=== PATIENT | female | born 1990 | race Caucasian/White ===

== ENCOUNTER 2017-06-02 18:12 | Emergency (ER) | payer OTHER, MEDICAID ==
[~2017-06-02] VITALS: Ht 157.5 cm; Wt 72.7 kg
[2017-06-02] MEDS ORDERED: CYCLOBENZ5 MG PO (19:28)
[2017-06-02 19:47] VITALS: BP 103/51
== END 2017-06-02 19:47 | disposition home or self-care (01) ==
LOC: ED 18:12
DX: S00.33XA Contusion of nose, initial encounter (principal); S13.4XXA Sprain of ligaments of cervical spine, initial encounter; V43.52XA Car driver injured in collision with other type car in traffic accident, initial encounter; Y92.410 Unspecified street and highway as the place of occurrence of the external cause
CPT/HCPCS: J1885; J2360

== ENCOUNTER 2019-01-20 16:48 | Emergency (ER) | payer BC ==
[~2019-01-20] VITALS: Ht 157.5 cm; Wt 90.0 kg
[~2019-01-20 16:48] MED LIST: CYCLOBENZ5 MG PO
[2019-01-20] MEDS ORDERED: PROAIR HFA0.09 MG/AC IH (16:56)
[2019-01-20] MEDS ORDERED: FLUTICASON0.05 MG/AC NS (16:56)
[2019-01-20] MEDS ORDERED: SERTRALINE50 MG PO (16:56)
[2019-01-20 17:27] LABS: EOS # 0.1 (0.04-0.40); EOS % 0.8 % (1.0-5.0); HEMATOCRIT 37.8 % (37.0-47.0); HEMOGLOBIN 12.1 g/dL (12.5-16.0); LYMPH# 1.9 (1.50-4.00); MEAN CELL VOLUME 83 fl (78-100); MEAN CORPUSCULAR HEMOGLOBIN 26 pg (27-31); MEAN CORPUSCULAR HGB CONC 32 g/dL (33-37); MEAN PLATELET VOLUME 9.4 fl (7.4-10.4); MONO # 0.5 (0.20-0.80); NEU # 6.1 (1.40-6.50); PLATELET COUNT 288 K/mm3 (130-400); RED BLOOD COUNT 4.58 M/mm3 (4.10-5.30); RED CELL DISTRIBUTION WIDTH 13.6 % (11.5-14.5); WHITE BLOOD COUNT 8.5 K/mm3 (4.8-10.8)
[2019-01-20 17:37] LABS: ALBUMIN 4.3 g/dL (3.5-5.0); POTASSIUM 3.6 mmol/L (3.5-5.1)
[2019-01-20 17:39] LABS: CALCIUM 9.3 mg/dL (8.3-10.5)
[2019-01-20 17:40] LABS: TOTAL PROTEIN 7.5 g/dL (6.4-8.3)
[2019-01-20 17:42] LABS: TOTAL BILIRUBIN 0.3 mg/dL (0.2-1.2)
[2019-01-20 18:28] LABS: URINE APPEARANCE HAZY; URINE BILIRUBIN NEGATIVE (NEGATIVE); URINE COLOR YELLOW; URINE GLUCOSE NEGATIVE (NEGATIVE); URINE KETONE NEGATIVE (NEGATIVE); URINE PROTEIN(semi-quant) TRACE mg/dL (NEGATIVE); URINE UROBILINOGEN NORMAL (NORMAL)
[2019-01-20 18:29] LABS: URINE BLOOD 250 ery/uL (NEGATIVE); URINE LEUKOCYTE ESTERASE 1+ (NEGATIVE); URINE NITRATE NEGATIVE (NEGATIVE)
[2019-01-20 18:30] LABS: CLUE CELLS NOT OBSERVED (Not Observd)
[2019-01-20] MEDS ORDERED: MACROBID 100 M100 MG PO (18:49)
[2019-01-20] MEDS ORDERED: ZOFRAN4 M2 PO (18:49)
[2019-01-20 19:12] VITALS: BP 116/41
== END 2019-01-20 19:14 | disposition home or self-care (01) ==
LOC: ED 16:48
PROVIDERS: Nurse Practitioner Primary Care
DX: N30.90 Cystitis, unspecified without hematuria (principal); N93.8 Other specified abnormal uterine and vaginal bleeding; Z90.49 Acquired absence of other specified parts of digestive tract; Z90.89 Acquired absence of other organs; Z79.51 Long term (current) use of inhaled steroids
CPT/HCPCS: J0696; Q0111

== ENCOUNTER → 2019-07-27 | Outpatient (CLI) | payer BC ==
[~2019-07-27] MED LIST changes: +FLUTICASON0.05 MG/AC NS; +MACROBID 100 M100 MG PO; +PROAIR HFA0.09 MG/AC IH; +SERTRALINE50 MG PO; +ZOFRAN4 M2 PO
== END ==
LOC: LAB 10:03
DX: J45.909 Unspecified asthma, uncomplicated (principal); R11.0 Nausea; R19.7 Diarrhea, unspecified; R50.9 Fever, unspecified

== ENCOUNTER → 2019-08-07 | Outpatient (CLI) | payer BC | LOC: RAD 10:18 | DX: M25.511 Pain in right shoulder (principal); M25.531 Pain in right wrist ==

== ENCOUNTER → 2019-08-23 | Outpatient (CLI) | payer BC | LOC: RAD 08:18 | DX: M25.511 Pain in right shoulder (principal) ==

== ENCOUNTER → 2019-09-05 | Outpatient (CLI) | payer BC | LOC: RAD 07:42 | DX: M25.511 Pain in right shoulder (principal) ==

== ENCOUNTER 2019-11-09 15:30 | Outpatient (RCR) | payer BC | END 2019-11-09 16:00 | disposition still patient (30) | LOC: PT 15:30 | DX: M79.601 Pain in right arm (principal); M62.838 Other muscle spasm; R20.0 Anesthesia of skin ==

== ENCOUNTER → 2019-11-14 | Outpatient (CLI) | payer BC | LOC: RAD 07:00 | DX: M50.122 Cervical disc disorder at C5-C6 level with radiculopathy (principal) ==

== ENCOUNTER 2020-07-28 04:43 | Emergency (ER) | payer OTHER ==
[2020-07-28] MEDS ORDERED: BACLOFEN10 M1 PO (04:54)
[2020-07-28] MEDS ORDERED: AMITRIPTYLINE H50 M1 PO (04:55)
[2020-07-28 05:51] LABS: EOS % 0.2 % (1.0-5.0); HEMATOCRIT 41.9 % (37.0-47.0); HEMOGLOBIN 14.1 g/dL (12.5-16.0); MEAN CELL VOLUME 84 fl (78-100); MEAN CORPUSCULAR HEMOGLOBIN 28 pg (27-31); MEAN CORPUSCULAR HGB CONC 34 g/dL (33-37); MEAN PLATELET VOLUME 9.7 fl (7.4-10.4); MONO # 0.5 (0.20-0.80); PLATELET COUNT 313 K/mm3 (130-400); RED BLOOD COUNT 5.01 M/mm3 (4.10-5.30); RED CELL DISTRIBUTION WIDTH 13.9 % (11.5-14.5); WHITE BLOOD COUNT 12.1 K/mm3 (4.8-10.8)
[2020-07-28 05:56] LABS: ALBUMIN 4.5 g/dL (3.5-5.0); POTASSIUM 3.3 mmol/L (3.5-5.1)
[2020-07-28 05:57] LABS: CALCIUM 10.1 mg/dL (8.3-10.5)
[2020-07-28 05:59] LABS: TOTAL PROTEIN 7.8 g/dL (6.4-8.3)
[2020-07-28 06:00] LABS: TOTAL BILIRUBIN 0.5 mg/dL (0.2-1.2)
[2020-07-28 06:05] LABS: NEU # 9.5 (1.40-6.50)
[2020-07-28 08:58] LABS: URINE APPEARANCE CLEAR; URINE BILIRUBIN NEGATIVE (NEGATIVE); URINE BLOOD 50 ery/uL (NEGATIVE); URINE COLOR YELLOW; URINE GLUCOSE NEGATIVE (NEGATIVE); URINE KETONE 1+ (NEGATIVE); URINE LEUKOCYTE ESTERASE NEGATIVE (NEGATIVE); URINE NITRATE NEGATIVE (NEGATIVE); URINE PROTEIN(semi-quant) TRACE mg/dL (NEGATIVE); URINE UROBILINOGEN NORMAL (NORMAL); URINE WBC 0-1 /hpf (0-3)
[2020-07-28] MEDS ORDERED: NORCO 325 MG-51 TA1 PO (09:47)
[2020-07-28] MEDS ORDERED: ZOFRAN ODT4 MG PO (09:47)
[2020-07-28 10:00] VITALS: BP 134/62
== END 2020-07-28 09:58 | disposition home or self-care (01) ==
LOC: ED 04:43
PROVIDERS: Family Medicine
DX: R10.9 Unspecified abdominal pain (principal); Z90.89 Acquired absence of other organs; Z90.49 Acquired absence of other specified parts of digestive tract; Z79.51 Long term (current) use of inhaled steroids
CPT/HCPCS: J1885; J2405; J3010; J7030; Q9967

== ENCOUNTER → 2020-08-07 | Outpatient (CLI) | payer OTHER ==
[2020-07-28 10:00] VITALS: BP 134/62
[~2020-08-07] MED LIST changes: +AMITRIPTYLINE H50 M1 PO; +BACLOFEN10 M1 PO; +NORCO 325 MG-51 TA1 PO; +ZOFRAN ODT4 MG PO
[2020-08-07 10:29] LABS: URINE APPEARANCE CLEAR; URINE BILIRUBIN NEGATIVE (NEGATIVE); URINE BLOOD NEGATIVE (NEGATIVE); URINE COLOR YELLOW; URINE GLUCOSE NEGATIVE (NEGATIVE); URINE KETONE NEGATIVE (NEGATIVE); URINE LEUKOCYTE ESTERASE NEGATIVE (NEGATIVE); URINE NITRATE NEGATIVE (NEGATIVE); URINE PROTEIN(semi-quant) NEGATIVE (NEGATIVE); URINE UROBILINOGEN NORMAL (NORMAL)
[2020-08-07 10:30] LABS: POTASSIUM 3.9 mmol/L (3.5-5.1)
[2020-08-07 10:32] LABS: CALCIUM 9.5 mg/dL (8.3-10.5)
[2020-08-07 10:35] LABS: BASO # 0.03 (0.02-0.10); EOS # 0.13 (0.04-0.40); EOS % 1.6 % (1.0-5.0); HEMATOCRIT 40.6 % (37.0-47.0); HEMOGLOBIN 13.5 g/dL (12.5-16.0); LYMPH# 2.34 (1.50-4.00); MEAN CELL VOLUME 85 fl (78-100); MEAN CORPUSCULAR HEMOGLOBIN 28 pg (27-31); MEAN CORPUSCULAR HGB CONC 33 g/dL (33-37); MEAN PLATELET VOLUME 9.2 fl (7.4-10.4); NEU # 5.27 (1.40-6.50); PLATELET COUNT 319 K/mm3 (130-400); RED BLOOD COUNT 4.77 M/mm3 (4.10-5.30); WHITE BLOOD COUNT 8.2 K/mm3 (4.8-10.8)
== END ==
LOC: LAB 10:06
PROVIDERS: Family Medicine
DX: E87.6 Hypokalemia (principal); D72.829 Elevated white blood cell count, unspecified; Z87.442 Personal history of urinary calculi

== ENCOUNTER → 2020-09-28 | Outpatient (CLI) | payer OTHER | LOC: LAB 11:28 | DX: B34.9 Viral infection, unspecified (principal); Z20.822 Contact with and (suspected) exposure to COVID-19 ==

== ENCOUNTER → 2021-01-03 | Outpatient (CLI) | payer OTHER ==
[2021-01-03 11:33] LABS: HEMATOCRIT 40.6 % (37.0-47.0); HEMOGLOBIN 13.2 g/dL (12.5-16.0); MEAN PLATELET VOLUME 9.8 fl (7.4-10.4); RED BLOOD COUNT 4.81 M/mm3 (4.10-5.30); RED CELL DISTRIBUTION WIDTH 12.7 % (11.5-14.5); WHITE BLOOD COUNT 10.7 K/mm3 (4.8-10.8)
== END ==
LOC: LAB 09:29
PROVIDERS: Family Medicine
DX: D50.9 Iron deficiency anemia, unspecified (principal)

== ENCOUNTER → 2021-02-14 | Outpatient (CLI) | payer SELFPAY ==
[2021-02-14 12:29] LABS: URINE APPEARANCE HAZY; URINE BILIRUBIN NEGATIVE (NEGATIVE); URINE BLOOD TRACE (NEGATIVE); URINE COLOR YELLOW; URINE GLUCOSE NEGATIVE (NEGATIVE); URINE KETONE NEGATIVE (NEGATIVE); URINE LEUKOCYTE ESTERASE TRACE (NEGATIVE); URINE NITRATE NEGATIVE (NEGATIVE); URINE PROTEIN(semi-quant) TRACE mg/dL (NEGATIVE); URINE UROBILINOGEN NORMAL (NORMAL)
[2021-02-14 12:30] LABS: URINE MUCUS PRESENT (NOT PRESENT)
== END ==
LOC: LAB 11:23
PROVIDERS: Family Medicine
DX: R10.9 Unspecified abdominal pain (principal)

== ENCOUNTER → 2021-02-15 | Outpatient (CLI) | payer SELFPAY | LOC: LAB 12:37 | DX: R19.7 Diarrhea, unspecified (principal) ==

== ENCOUNTER → 2021-06-24 | Outpatient (CLI) | payer OTHER ==
[2021-06-24 12:02] LABS: BASO # 0.02 K/mm3 (0.02-0.10); EOS # 0.05 K/mm3 (0.04-0.40); EOS % 0.6 % (1.0-5.0); HEMOGLOBIN 13.3 g/dL (12.5-16.0); LYMPH# 1.94 K/mm3 (1.50-4.00); MEAN CELL VOLUME 79 fl (78-100); MEAN CORPUSCULAR HEMOGLOBIN 25 pg (27-31); MEAN CORPUSCULAR HGB CONC 32 g/dL (33-37); MONO # 0.35 K/mm3 (0.20-0.80); NEU # 6.16 K/mm3 (1.40-6.50); PLATELET COUNT 300 K/mm3 (130-400); RED BLOOD COUNT 5.35 M/mm3 (4.10-5.30); RED CELL DISTRIBUTION WIDTH 13.9 % (11.5-14.5); WHITE BLOOD COUNT 8.5 K/mm3 (4.8-10.8)
[2021-06-24 12:16] LABS: ALBUMIN 4.4 g/dL (3.5-5.0); POTASSIUM 3.6 mmol/L (3.5-5.1)
[2021-06-24 12:17] LABS: CALCIUM 10.1 mg/dL (8.3-10.5)
[2021-06-24 12:18] LABS: TOTAL PROTEIN 7.5 g/dL (6.4-8.3)
[2021-06-24 12:20] LABS: TOTAL BILIRUBIN 0.4 mg/dL (0.2-1.2)
== END ==
LOC: LAB 11:38
PROVIDERS: Family Medicine
DX: S27.1XXD Traumatic hemothorax, subsequent encounter (principal); T14.8XXD Other injury of unspecified body region, subsequent encounter; J45.909 Unspecified asthma, uncomplicated; K21.9 Gastro-esophageal reflux disease without esophagitis; F41.8 Other specified anxiety disorders; N31.9 Neuromuscular dysfunction of bladder, unspecified; G54.0 Brachial plexus disorders; E66.9 Obesity, unspecified; X58.XXXD Exposure to other specified factors, subsequent encounter

== ENCOUNTER → 2021-09-22 | Outpatient (CLI) | payer OTHER | LOC: RAD 09-19 08:00 | DX: N20.0 Calculus of kidney (principal) ==

== ENCOUNTER → 2021-10-20 | Outpatient (CLI) | payer MEDICAID ==
[2021-10-20 16:42] LABS: ALBUMIN 4.3 g/dL (3.5-5.0); BASO # 0.03 K/mm3 (0.02-0.10); EOS # 0.07 K/mm3 (0.04-0.40); EOS % 0.6 % (1.0-5.0); HEMATOCRIT 40.6 % (37.0-47.0); HEMOGLOBIN 13.4 g/dL (12.5-16.0); LYMPH# 2.02 K/mm3 (1.50-4.00); MEAN CELL VOLUME 86 fl (78-100); MEAN CORPUSCULAR HEMOGLOBIN 29 pg (27-31); MEAN CORPUSCULAR HGB CONC 33 g/dL (33-37); MEAN PLATELET VOLUME 9.1 fl (7.4-10.4); MONO # 0.45 K/mm3 (0.20-0.80); NEU # 8.74 K/mm3 (1.40-6.50); PLATELET COUNT 192 K/mm3 (130-400); RED CELL DISTRIBUTION WIDTH 13.3 % (11.5-14.5); WHITE BLOOD COUNT 11.3 K/mm3 (4.8-10.8)
[2021-10-20 16:43] LABS: CALCIUM 9.9 mg/dL (8.3-10.5)
[2021-10-20 16:45] LABS: TOTAL PROTEIN 6.6 g/dL (6.4-8.3)
[2021-10-20 16:46] LABS: TOTAL BILIRUBIN 0.5 mg/dL (0.2-1.2)
[2021-10-20 17:49] LABS: ERYTHROCYTE SEDIMENTATION RATE 22 mm/hr (0-20)
== END ==
LOC: LAB 16:11
PROVIDERS: Family Medicine
DX: Z01.812 Encounter for preprocedural laboratory examination (principal); J45.909 Unspecified asthma, uncomplicated; K21.9 Gastro-esophageal reflux disease without esophagitis; F41.8 Other specified anxiety disorders; N31.9 Neuromuscular dysfunction of bladder, unspecified; G54.0 Brachial plexus disorders; G82.20 Paraplegia, unspecified; M67.823 Other specified disorders of tendon, right elbow; E66.9 Obesity, unspecified

== ENCOUNTER → 2021-10-21 | Outpatient (CLI) | payer MEDICAID ==
[2021-10-21 19:24] LABS: URINE APPEARANCE CLEAR; URINE BILIRUBIN NEGATIVE (NEGATIVE); URINE BLOOD 50 ery/uL (NEGATIVE); URINE COLOR YELLOW; URINE GLUCOSE NEGATIVE (NEGATIVE); URINE KETONE NEGATIVE (NEGATIVE); URINE LEUKOCYTE ESTERASE 1+ (NEGATIVE); URINE NITRATE POSITIVE (NEGATIVE); URINE PROTEIN(semi-quant) NEGATIVE (NEGATIVE); URINE UROBILINOGEN NORMAL (NORMAL); URINE WBC 16-30 /hpf (0-3)
== END ==
LOC: LAB 18:57
PROVIDERS: Family Medicine
DX: Z87.440 Personal history of urinary (tract) infections (principal)

== ENCOUNTER → 2021-12-02 | Outpatient (CLI) | payer MEDICAID | LOC: LAB 20:25 | DX: L97.909 Non-pressure chronic ulcer of unspecified part of unspecified lower leg with unspecified severity (principal); G82.20 Paraplegia, unspecified ==

== ENCOUNTER → 2021-12-03 | Outpatient (RCR) | payer MEDICAID | END | disposition home or self-care (01) | LOC: PT | DX: M19.111 Post-traumatic osteoarthritis, right shoulder (principal) ==

== ENCOUNTER → 2023-02-03 | Outpatient (CLI) | payer MEDICAID ==
[2023-02-03 10:59] LABS: URINE APPEARANCE CLEAR; URINE COLOR YELLOW
[2023-02-03 11:00] LABS: URINE BILIRUBIN NEGATIVE (NEGATIVE); URINE BLOOD TRACE (NEGATIVE); URINE GLUCOSE NEGATIVE (NEGATIVE); URINE KETONE NEGATIVE (NEGATIVE); URINE LEUKOCYTE ESTERASE 1+ (NEGATIVE); URINE MUCUS PRESENT (NOT PRESENT); URINE NITRATE POSITIVE (NEGATIVE); URINE PROTEIN(semi-quant) 1+ (NEGATIVE); URINE UROBILINOGEN NORMAL (NORMAL); URINE WBC 31-50 /hpf (0-3)
== END ==
LOC: LAB 09:49
PROVIDERS: Family Medicine
DX: Z00.00 Encounter for general adult medical examination without abnormal findings (principal); E78.5 Hyperlipidemia, unspecified; J45.909 Unspecified asthma, uncomplicated; K21.9 Gastro-esophageal reflux disease without esophagitis; G43.909 Migraine, unspecified, not intractable, without status migrainosus; F41.8 Other specified anxiety disorders; N31.9 Neuromuscular dysfunction of bladder, unspecified; G54.0 Brachial plexus disorders; E66.9 Obesity, unspecified; G82.20 Paraplegia, unspecified; M67.823 Other specified disorders of tendon, right elbow; N39.0 Urinary tract infection, site not specified; M25.511 Pain in right shoulder

== ENCOUNTER → 2023-08-09 | Outpatient (CLI) | payer MEDICAID | LOC: RAD 11:50 | DX: M25.552 Pain in left hip (principal) ==

== ENCOUNTER → 2024-04-26 | Outpatient (CLI) | payer MEDICARE, MEDICAID ==
[2024-04-26 14:01] LABS: PH-URINE 5.5 (5.0 - 8.0); URINE APPEARANCE SLIGHTLY CLOUDY (CLEAR); URINE BILIRUBIN 1+ (NEGATIVE); URINE COLOR YELLOW (YELLOW); URINE GLUCOSE NEGATIVE (NEGATIVE); URINE KETONE NEGATIVE (NEGATIVE); URINE NITRATE NEGATIVE (NEGATIVE); URINE PROTEIN(semi-quant) TRACE (NEGATIVE)
[2024-04-26 14:02] LABS: URINE BLOOD TRACE (NEGATIVE); URINE LEUKOCYTE ESTERASE 1+ (NEGATIVE); URINE MUCUS PRESENT (NOT PRESENT); URINE WBC 31-50 /hpf (0-3)
== END ==
LOC: LAB 12:40
PROVIDERS: Family Medicine
DX: N39.0 Urinary tract infection, site not specified (principal)